=== PATIENT | male | born 1960 | race Caucasian/White ===

== ENCOUNTER 2017-01-12 19:26 | Emergency (ER) | payer OTHER ==
[2017-01-12] MEDS ORDERED: TETANUS AND DIPHTHERIA TOXOID 0.5 ML DISP.SYRIN IM ONE (20:20)
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
[2017-01-12 20:26] VITALS: BP 128/88; PULSE 87; TEMP 97.6; BMI 34.7
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
[2017-01-12] MEDS ORDERED: KETOROLAC TROMETHAMINE 60 MG/2 ML VIAL ONE (21:09)
== END 2017-01-12 22:35 | disposition home or self-care (01) ==
LOC: JER 19:26
PROC: 3E0234Z Introduction of Serum, Toxoid and Vaccine into Muscle, Percutaneous Approach (ICD-10-PCS; principal; 2017-01-12)
DX: S00.01XA Abrasion of scalp, initial encounter (principal); S50.812A Abrasion of left forearm, initial encounter; Y00.XXXA Assault by blunt object, initial encounter; Y93.89 Activity, other specified; Y92.480 Sidewalk as the place of occurrence of the external cause; Y99.8 Other external cause status; Y07.9 Unspecified perpetrator of maltreatment and neglect
CPT/HCPCS: 70450-TC; 99281-25

== ENCOUNTER 2018-09-01 13:34 | Emergency (ER) | payer OTHER ==
[2018-09-01 13:43] VITALS: TEMP 98.7; BMI 33.5
--- NOTE | 2018-09-01 14:03 | PDOC ---
History of Present Illness - General Chief Complaint: Pain Stated Complaint: SENT BY PCP..STOMACH DISCOMFORT Time Seen by Provider: 09/01/18 13:59 History Source: Patient Exam Limitations: No Limitations - History of Present Illness Initial Comments: Eugene Nazario is a 58 yo obese M w a hx of HTN and GERD who presents to the ER with 3 days of worsening LLQ abdominal pain. The patient went to his PCP - Dr. Garcia this morning who sent him to the ER to get a cat scan to r/o diverticulitis. The patient states his pain began on Thursday and has been getting progressively worse. Today he rates his pain as 10/10 and describes it as a sharp needle like sensation which comes and goes. The pain does not radiate to his groin or back. He had a normal bowel movement this morning which was not diarrhea or constipation. He denies any associated nausea, vomiting, diarrhea, constipation, dysuria, frequency, urgency, fever, chills or infections. Also denies chest pain, SOB, difficulty breathing or back pain. PCP: Dr. Perea GI: Robert López PSH: Hernia repair, back surgery, rotater cuff surgery Allergies: Contrast oral and IV, Muscle relaxers Social Hx: Smokes 1 PPD ~ 45 years, Drinks recreationally. Denies other substance usage. Past History - Past Medical History Allergies/Adverse Reactions: Allergies Allergy/AdvReac Type Severity Reaction Status Date / Time Iodinated Contrast- Oral and Allergy Verified 09/01/18 13:[address] dye Allergy Uncoded 09/01/18 13:43 COPD: No GI Disorders: Yes (GERD) HTN: Yes Other medical history: back pain - Surgical History GI Surgery: Yes (HERNIA) - Suicide/Smoking/Psychosocial Hx Smoking History: Current every day smoker Have you smoked in the past 12 months: Yes Number of Cigarettes Smoked Daily: 20 Information on smoking cessation initiated: No Hx Alcohol Use: Yes (social) Drug/Substance Use Hx: No Review of Systems - Review of Systems Able to Perform ROS?: Yes Comments:: CONSTITUTIONAL: Absent: fever, no chills, no fatigue EYES: Absent: visual changes ENT: Absent: ear pain, no sore throat CARDIOVASCULAR: Absent: chest pain, no palpitations RESPIRATORY: Absent: cough, no SOB GI: Present: Abdominal pain Absent: no nausea, no vomiting, no constipation, no diarrhea GENITOURINARY: Absent: dysuria, no frequency, no hematuria MUSKULOSKELETAL: Absent: back pain, no arthralgia, no myalgia SKIN: Absent: rash NEURO: Absent: headache *Physical Exam - Vital Signs Last Vital Signs Temp Pulse Resp BP Pulse Ox 98.7 F 100 H 17 147/95 100 09/01/18 13:39 09/01/18 13:39 09/01/18 13:39 09/01/18 13:39 09/01/18 13:39 - Physical Exam Comments: GENERAL: Well-appearing, well-nourished. No apparent distress. HEENT: Normocephalic, atraumatic. PERRL, EOM intact. CARDIOVASCULAR: Normal S1, S2. Regular rate and rhythm. PULMONARY: No evidence of respiratory distress. Lungs clear to auscultation bilaterally. No wheezing, rales or rhonchi. ABDOMEN: Obese. There is a significant amount of LLQ TTP. There is also Suprapubic TTP but not as bad as the LLQ. Normal Bowel sounds. No rebound or guarding. EXTREMITIES: Normal ROM in all four extremities. No gross deformities. SKIN: Warm, dry. No rash NEUROLOGICAL: No focal neurological deficits. Heart Score/ECG Review - ECG Intrepretation Rhythm: Regular Rhythm - [place]: Left [place] Deviation - P and [place] Prominent R with upright T in V1 (true posterior MA): No Delta Wave(s) Present: No WPW: No - QRS Poor R Wave Progression: No - ST and T Non Specific ST-T Wave changes: No Flattened T Waves: Yes Prolonged Q-T Interval: No - ECG Impressions Normal ECG: No Non-specific ST Elevation: No ED Treatment Course - LABORATORY CBC & Chemistry Diagram: 09/01/18 15:03 09/01/18 15:03 - RADIOLOGY Radiograph Interpretation: CTAP: Abdomen and pelvis CT without contrast Clinical information: left lower quadrant pain, evaluate for diverticulitis Multiplanar imaging was performed. As requested no intravenous or enteric contrast was administered. No prior imaging studies are available at this facility for direct comparison. Along the ventral border of the sigmoid colon adjacent to the abdominal/pelvic junction note is made of mild focal pericolonic edema surrounding a 1.4 x 1 cm mild lucency. The CT appearance is suggestive of acute epiploic appendagitis. No obvious diverticulosis is seen. There is no definite associated colonic wall edema. No gross mass lesion is visualized. There is no evidence of abscess, free intraperitoneal fluid, pneumoperitoneum or bowel obstruction. 2 mm nonobstructing left renal calyceal calculus. Small bilateral inguinal hernias containing fat only. Small hiatal hernia. The left kidney, liver, spleen, pancreas, gallbladder, and adrenal glands demonstrate no discrete noncontrast abnormality. There is no aortic aneurysm. No definite lymphadenopathy is noted on the basis of CT size criteria. The appendix appears unremarkable. No gross noncontrast small bowel abnormality is identified. Marked L1-L2 degenerative disc space narrowing with associated vertebral endplate sclerosis. Mild prostate enlargement. Impression: Mild focal pericolonic edema is seen along the ventral border of the sigmoid colon adjacent to the abdominal/pelvic junction. The CT appearance is suggestive of acute epiploic appendagitis. Early acute uncomplicated diverticulitis is less likely on the basis of CT given lack of definite visualization of diverticulosis and lack of visualization of definite colonic wall edema. Clinical/ laboratory correlation is suggested. Correlation with colonoscopy is suggested when the patient's clinical condition permits. 2 mm nonobstructing left renal calculus. Small bilateral inguinal hernias containing fat only. Small hiatal hernia. Medical Decision Making - Medical Decision Making Eugene Nazario is a 58 yo obese M w a hx of HTN and GERD who presents to the ER with 3 days of worsening LLQ abdominal pain. The patient went to his PCP - Dr. Garcia this morning who sent him to the ER to get a cat scan to r/o diverticulitis. The patient states his pain began on Thursday and has been getting progressively worse. Today he rates his pain as 10/10 and describes it as a sharp needle like sensation which comes and goes. The pain does not radiate to his groin or back. He had a normal bowel movement this morning which was not diarrhea or constipation. Vital Signs Temp Pulse Resp BP Pulse Ox 98.7 F 100 H 17 147/95 100 09/01/18 13:39 09/01/18 13:39 09/01/18 13:39 09/01/18 13:39 09/01/18 13:39 DDx IBNLT: Diverticulitis, UTI/Pylo, renal colic, colitis, appendicitis, SBO, electrolyte/metabolic disturbance, Hernia - incarecerated vs strangulated. Plan: Labs, Urine, EKG, CTAP, IV hydration, analgesia, re-assess. EKG: Normal sinus rhythm rate of 85. Flattened T waves in V2 and aVL. Also Q waves in inferior and anterior leads. No old EKG's for comparison. QTc 411. - Will give patient copy of his EKG and recommend Cardio FU. Labs: Mild leukocytosis of 10.4. Elevated Lactic acid at 2.2. Mild elevation in BUN to 18.4 - Will hydrate patient w 2 liters of NS Urine: Slight ketonuria, otherwise unremarkable. CTAP: Suggests acute epiploic appendagitis. - Along the ventral border of the sigmoid colon adjacent to the abdominal/ pelvic junction note is made of mild focal pericolonic edema surrounding a 1.4 x 1 cm mild lucency. - No obvious diverticulitis - No colonic wall edema - Will treat with anti-inflammatory meds - NSAIDs and give patient surgical fu Repeat Lactic acid: Normal Disposition: Will DC patient with NSAID's for pain control and Surgical follow up with Dr. Szymanski. Patient handed a copy of his EKG and CT scan and advised to follow up with surgeon and rib bender. *DC/Admit/Observation/Transfer Diagnosis at time of Disposition: Abdominal pain, Epiploic appendagitis - Discharge Dispostion Disposition: HOME Condition at time of disposition: Improved Decision to Admit order: No - Referrals Referrals: Rudy Mas MD [Staff Physician] - Carl Garcia MD [Primary Care Provider] - Swapnil Szymanski MD [Staff Physician] - - Patient Instructions Printed Discharge Instructions: Acute Abdominal Pain Additional Instructions: You came into the ER with lower abdominal pain. We did a cat scan which showed you have "Epiploic appendagitis." It is important for you to take anti- inflammatory medications for this condition like Motrin, ibuprofen, advil, or alleve. We are giving you the number of a surgeon - Swapnil Szymanski - to call and schedule an appointment with. Please make sure to call him up and schedule an appointment in the next 3 to 5 days. Come back to the ER immediately if your pain worsens or you have any other new or worsening concerns. Come back to the ER immediately if you get a fever, start vomiting, have severe nausea, or any other worsening concerns. We gave you a copy of your CT scan to discuss with your primary care doctor and surgeon. We gave you a copy of your EKG to discuss with your rib bender as an outpatient. Thank you for coming to the [facility] ER. We hope you feel better soon! Print Language: INDIAN - Post Discharge Activity
[2018-09-01] MEDS ORDERED: ACETAMINOPHEN 1000 MG/100 ML VIAL (NON FORMULARY) IVPB ONE (14:10)
[2018-09-01] MEDS ORDERED: SODIUM CHLORIDE 1,000 ML IV STA (14:10)
[2018-09-01 15:13] LABS: BASO % 0.8 % (0-2.0); EOS % 1.8 % (0-4.5); HEMATOCRIT 47.3 % (35.4-49); HEMOGLOBIN 15.7 GM/dL (11.7-16.9); MCH 29.7 pg (25.7-33.7); MCHC 33.3 g/dl (32.0-35.9); MEAN CELL VOLUME 89.3 fl (80-96); MEAN PLT VOLUME 8.5 fl (7.5-11.1); MONO % 7.2 % (3.8-10.2); NEUT % 63.2 % (42.8-82.8); PLATELET COUNT 265 K/MM3 (134-434); RBC 5.29 M/mm3 (4.00-5.60); RDW 13.5 % (11.9-15.9); WHITE BLOOD COUNT 10.5 K/mm3 (4.0-10.0)
[2018-09-01 15:36] LABS: INR 1.06 (0.83-1.09); PROTHROMBIN TIME (PATIENT) 12.5 SEC (9.7-13.0)
[2018-09-01] MEDS ORDERED: NICOTINE 7 MG/24 HOURS TOPICAL PATCH TD ONE (15:41)
[2018-09-01 15:46] LABS: BILIRUBIN,TOTAL 0.4 mg/dL (0.2-1); BLOOD UREA NITROGEN 18.4 mg/dL (7-18); CALCIUM 9.3 mg/dL (8.5-10.1); CREATININE 1.3 mg/dL (0.55-1.3); MAGNESIUM 2.3 mg/dL (1.8-2.4); PHOSPHOROUS 3.6 mg/dL (2.5-4.9); POTASSIUM 4.1 mmol/L (3.5-5.1); TOT PROT 7.9 g/dl (6.4-8.2)
[2018-09-01 16:02] LABS: PH,URINE 5.5 (5.0-8.0); URINE APPEARANCE CLEAR; URINE BILIRUBIN NEGATIVE (NEGATIVE); URINE COLOR DK YELLOW; URINE GLUCOSE (UA) NEGATIVE (NEGATIVE); URINE KETONE TRACE (NEGATIVE); URINE LEUK ESTERASE NEGATIVE (NEGATIVE); URINE NITRITE NEGATIVE (NEGATIVE); URINE PROTEIN TRACE (NEGATIVE)
[2018-09-01] MEDS ORDERED: SODIUM CHLORIDE 0.9% 500 ML INFUS.BAG IV ONE (16:12)
--- NOTE | 2018-09-01 16:41 | PDOC ---
Documentation entered by Eddie Amezuqita SCRIBE, acting as scribe for Tommie Burger MD. Tommie Burger MD: This documentation has been prepared by the Alirio wheat Joel, SCRIBE, under my direction and personally reviewed by me in its entirety. I confirm that the documentation accurately reflects all work, treatment, procedures, and medical decision making performed by me. Attending Attestation - Resident Resident Name: Panfilo Pineda - ED Attending Attestation I have performed the following: I have examined & evaluated the patient, The case was reviewed & discussed with the resident, I agree w/resident's findings & plan, Exceptions are as noted - HPI HPI: 09/01/18 15:30 The patient is a 58 year old male with a significant PMH of HTN and GERD who presents to the emergency department from Dr. Brock office for evaluation of worsening LLQ abdominal pain over the past 3 days. The patient describes his LLQ abdominal pain as an intermittent, intense, sharp sensation with no radiation. He states Dr. Garcia sent him in to r/o diverticulitis. The patient denies chest pain, shortness of breath, headache and dizziness. Denies fever, chills, vomit, diarrhea and constipation. Denies dysuria, frequency, urgency and hematuria. Allergies: IV contrast Past surgical history: Hernia repair Social history: Current everyday smoker. Social alcohol use. No drug use. PCP: Dr. Garcia GI: Dr. López - Physicial Exam PE: 09/01/18 16:39 "GENERAL: Awake, alert, and fully oriented, in no acute distress. HEAD: No signs of trauma EYES: PERRLA, EOMI, sclera anicteric, conjunctiva clear ENT: Auricles normal inspection, hearing grossly normal, nares patent, oropharynx clear without exudates. Moist mucosa NECK: Nontender, no stepoffs, Normal ROM, supple, no lymphadenopathy, JVD, or masses LUNGS: Breath sounds equal, clear to auscultation bilaterally. No wheezes, and no crackles HEART: Regular rate and rhythm, normal S1 and S2, no murmurs, rubs or gallops ABDOMEN: + LLQ TTP, normoactive bowel sounds. No guarding, no rebound. No masses EXTREMITIES: Normal range of motion, no edema. No clubbing or cyanosis. No cords, erythema, or tenderness NEUROLOGICAL: Cranial nerves II through XII intact. 5/5 strength and sensation in all extremities, Normal speech, normal gait, normal cerebellar function SKIN: Warm, Dry, normal turgor, no rashes or lesions noted. - Medical Decision Making 09/01/18 16:39 58 M with LLQ pain. Will evaluate for colitis vs diverticulitis vs inguinal hernia. - Labs - CTAP - IVF, pain control 09/01/18 17:19 Lactate 2.[address] obtained, awaiting read Pt signed out to oncoming attending, Dr. Duran, pending CT report, repeat lactate, and re-evaluation
[2018-09-01] MEDS ORDERED: KETOROLAC TROMETHAMINE 15 MG/ML VIAL IVPUSH ONE (18:44)
[2018-09-01 18:59] VITALS: BP 142/75; PULSE 89
--- NOTE | 2018-09-02 10:16 | EKG ---
Test Reason : Blood Pressure : / mmHG Vent. Rate : 085 BPM Atrial Rate : 085 BPM P-R Int : 136 ms QRS Dur : 078 ms QT Int : 346 ms P-R-T Axes : 021 -29 054 degrees QTc Int : 411 ms NORMAL SINUS RHYTHM INFERIOR INFARCT , AGE UNDETERMINED ANTERIOR INFARCT , AGE UNDETERMINED ABNORMAL ECG NO PREVIOUS ECGS AVAILABLE Confirmed by VERNA MASON MD ([id number]) on 09/02/2018 10:16:09 AM Referred By: Confirmed By:VERNA MASON MD
[2018-09-02] MEDS ORDERED: NICOTINE 7 MG/24 HOURS TOPICAL PATCH TD ONE (15:41)
== END 2018-09-01 18:59 | disposition home or self-care (01) ==
LOC: JER 13:34
PROC: 3E0337Z Introduction of Electrolytic and Water Balance Substance into Peripheral Vein, Percutaneous Approach (ICD-10-PCS; principal; 2018-09-01)
DX: R10.9 Unspecified abdominal pain (principal); I10 Essential (primary) hypertension; K21.9 Gastro-esophageal reflux disease without esophagitis; K63.89 Other specified diseases of intestine
CPT/HCPCS: 36415; 74176-TC; 80053; 81003; 83605; 83690; 83735; 84100; 84484; 85025; 85610; 86850; 86900; 86901; 87086; 93005; 93010; 99283-25; J7030

== ENCOUNTER 2020-05-31 04:23 | Day surgery (SDC) | payer OTHER ==
[2020-05-29 13:22] VITALS: BMI 28.8
[2020-05-31 08:04] VITALS: TEMP 97.9
[2020-05-31 08:36] VITALS: PULSE 61
[2020-05-31 09:21] VITALS: BP 123/83
== END 2020-05-31 08:50 | disposition home or self-care (01) ==
LOC: JASU-ENDO 04:23
PROVIDERS: ATTEND Internal Medicine Gastroenterology
PROC: 0DB78ZX Excision of Stomach, Pylorus, Via Natural or Artificial Opening Endoscopic, Diagnostic (ICD-10-PCS; principal; 2020-05-31 08:45)
DX: K29.50 Unspecified chronic gastritis without bleeding (principal); K29.80 Duodenitis without bleeding; K44.9 Diaphragmatic hernia without obstruction or gangrene; Z91.041 Radiographic dye allergy status; Z88.5 Allergy status to narcotic agent; Z88.8 Allergy status to other drugs, medicaments and biological substances; Z91.013 Allergy to seafood
CPT/HCPCS: 88305-TC; 88342-TC

== ENCOUNTER 2021-03-26 04:45 | Day surgery (SDC) | payer OTHER ==
[2021-03-22 14:56] VITALS: BMI 28.7
[2021-03-26 09:28] VITALS: TEMP 98.2
[2021-03-26] MEDS ORDERED: BUPIVACAINE HCL/PF 0.75% 10 ML VIAL NR ONE (11:18)
[2021-03-26] MEDS ORDERED: LIDOCAINE 1% P/F 10 MG/ML VIAL INF ONE (11:19)
[2021-03-26 12:21] VITALS: BP 139/86; PULSE 55
== END 2021-03-26 12:21 | disposition home or self-care (01) ==
LOC: JASU-SURG 04:45
PROVIDERS: ATTEND Pain Medicine Pain Medicine
PROC: BR16YZZ Fluoroscopy of Lumbar Facet Joint(s) using Other Contrast (ICD-10-PCS; 2021-03-26)
PROC: 3E0T3BZ Introduction of Anesthetic Agent into Peripheral Nerves and Plexi, Percutaneous Approach (ICD-10-PCS; principal; 2021-03-26 10:30)
DX: M47.816 Spondylosis without myelopathy or radiculopathy, lumbar region (principal)
CPT/HCPCS: 76000-TC-FY

== ENCOUNTER 2021-04-19 04:05 | Day surgery (SDC) | payer OTHER ==
[2021-04-15 15:24] VITALS: BMI 28.4
[2021-04-19 06:21] VITALS: TEMP 97.8
[2021-04-19] MEDS ORDERED: BUPIVACAINE HCL/PF 0.5% (5MG/ML) 10 ML VIAL ONE (07:46)
[2021-04-19] MEDS ORDERED: LIDOCAINE HCL/PF 1% SDV 5ML VIAL ONE (07:46)
[2021-04-19] MEDS ORDERED: LIDOCAINE HCL 1% PRESERVATIVE FREE - 30ML VIAL IJ ONE (08:42)
[2021-04-19] MEDS ORDERED: BUPIVACAINE HCL/PF 0.75% 10 ML VIAL NR ONE ×2 (08:44→08:49)
[2021-04-19 09:41] VITALS: BP 138/74; PULSE 53
[2021-04-19] MEDS ORDERED: BUPIVACAINE HCL/PF 0.75% 10 ML VIAL ONE (10:02)
== END 2021-04-19 09:10 | disposition home or self-care (01) ==
LOC: JASU-SURG 04:05
PROVIDERS: ATTEND Pain Medicine Pain Medicine
PROC: BR15YZZ Fluoroscopy of Thoracic Facet Joint(s) using Other Contrast (ICD-10-PCS; 2021-04-19)
PROC: 3E0T3BZ Introduction of Anesthetic Agent into Peripheral Nerves and Plexi, Percutaneous Approach (ICD-10-PCS; principal; 2021-04-19 08:00)
DX: M47.894 Other spondylosis, thoracic region (principal); I10 Essential (primary) hypertension
CPT/HCPCS: 76000-TC-FY